=== PATIENT | male | born 1980 ===

== ENCOUNTER 2020-01-23 19:03 | Emergency (ER) ==
[2020-01-23] MEDS ORDERED: NA CHLORIDE 0.9% 1,000 ML ONE (19:35)
[2020-01-23] MEDS ORDERED: DOXYCYCLINE 100 MG CAP PO ONE (19:35)
[2020-01-23] MEDS ORDERED: TETANUS & DIPHTHERIA TOX,ADULT 0.5 ML VIAL ONE (19:35)
[2020-01-23] MEDS ORDERED: HYDROMORPHONE HCL 1 MG/ML INJ ONE ×2 (19:35→20:07)
[2020-01-23] MEDS ORDERED: ONDANSETRON 4 MG/2 ML VIAL ONE (19:35)
--- NOTE | 2020-01-23 19:57 | RAD REPORT ---
EXAM DESCRIPTION: Nellie Last Left01/23/2020 7:34 pm CLINICAL HISTORY: Left leg pain status post injury FINDINGS: No fracture is seen. Medial soft tissue swelling. No radiopaque foreign body
[2020-01-23] MEDS ORDERED: FENTANYL CITR 100 MCG/2 ML ONE ×2 (21:10→22:02)
--- NOTE | 2020-01-23 21:51 | ER ---
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 ll1 Coronavirus screen: Proceed with normal triage. Patient denies a cough. Patient denies shortness of breath or difficulty breathing. Patient denies measured and/or subjective temperature greater than 100.4F prior to today's visit. Patient denies travel on a cruise ship or to a country the [facility] currently lists as an affected area. Patient denies contact with known and/or suspected case of COVID-19. Ebola Screen: Patient denies travel to an Ebola-affected area in the 21 days before illness onset. 19:08 Method Of Arrival: Wheelchair ll1 19:17 Initial Sepsis Screen: Does the patient meet any 2 criteria? RR > 20 per min. HR > 90 ll1 bpm. Risk Assessment: Do you want to hurt yourself or someone else? Patient reports no desire to harm self or others. Onset of symptoms was January 23, 2020. 19:17 Acuity: AKI 2 ll1 22:18 Initial Sepsis Screen: Does the patient have a suspected source of infection? Yes: Skin ch2 breakdown/wound. Historical: - Allergies: 19:17 No Known Allergies; ll1 - PMHx: 19:17 Diabetes - NIDDM; ll1 - Immunization history:: Last tetanus immunization: up to date. - Social history:: Smoking status: Patient denies any tobacco usage or history of. Screenin:17 Abuse screen: Denies threats or abuse. Denies injuries from another. Nutritional ch2 screening: No deficits noted. Tuberculosis screening: No symptoms or risk factors identified. Fall Risk None identified. Assessment: 19:15 Reassessment: pt left foot placed into warm water soak. sg 19:47 General: Appears distressed, uncomfortable, obese, well groomed, well developed, well ch2 nourished, Behavior is cooperative, appropriate for age, anxious, restless, Reports. Pain: Complains of pain in left medial ankle Pain currently is 10 out of 10 on a pain scale. Quality of pain is described as. Neuro: No deficits noted. 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 Full function Gait is Speech is normal, Reports Denies blurred vision dizziness, difficulty swallowing. Cardiovascular: No deficits noted. Denies chest pain, nausea, shortness of breath, Capillary refill < 3 seconds. Respiratory: No deficits noted. Airway is patent Trachea Respiratory effort is even, unlabored, Respiratory pattern is regular, symmetrical. Derm: Skin sting ray sting to left inner ankle, minimal bleeding, slightly swollen. Injury Description: Puncture sustained to left medial ankle. 20:00 Reassessment: Patient and/or family updated on plan of care and expected duration. Pain ch2 level reassessed. Patient is alert, oriented x 3, equal unlabored respirations, skin warm/dry/pink. Patient states feeling better. Patient states symptoms have improved. 20:00 Pain: Pain currently is 5 out of 10 on a pain scale. Alleviated by medications, heat ch2 application, relaxation. 22:15 Reassessment: Patient appears in no apparent distress at this time. Patient and/or ch2 family updated on plan of care and expected duration. Pain level reassessed. Patient is alert, oriented x 3, equal unlabored respirations, skin warm/dry/pink. Patient states feeling better. Patient states symptoms have improved. Pain: Pain currently is 8 out of 10 on a pain scale. Vital Signs: 19:17 Pulse 114; Resp 26; Temp 97.6; Pulse Ox 100% ; Pain 10/10; ll1 19:46 BP 120 / 87; Pain 10/10; ch2 21:00 BP 111 / 69; Pulse 88; Resp 20; Pain 5/10; ch2 22:12 Pain 5/10; ch2 22:14 BP 124 / 90; Pulse 90; Resp 20; Pulse Ox 100% ; Pain 8/10; ch2 ED Course: 19:04 Patient arrived in ED. bp1 19:12 Gino Wilson NP is PHCP. pm1 19:12 Regine Cm MD is Attending Physician. pm1 19:17 Triage completed. ll1 19:34 XRAY Tib Fib LEFT In Process Unspecified. EDMS 19:40 Arm band placed on right wrist. Patient placed. ch2 19:40 Inserted saline lock: 20 gauge in right antecubital area, using aseptic technique. ch2 21:23 Patient has correct armband on for positive identification. Bed in low position. Call ch2 light in reach. Adult w/ patient. Door closed. Noise minimized. Visitors limited. 22:17 No provider procedures requiring assistance completed. IV discontinued, intact, ch2 bleeding controlled, No redness/swelling at site. Pressure dressing applied. 23:30 Attending Physician role handed off by Regine Cm MD sg Administered Medications: Discontinued: NS 0.9% 1000 ml IV at 125 ml/hr continuous 19:43 Drug: Zofran (Ondansetron) 4 mg Route: IVP; Site: right antecubital; ch2 21:21 Follow up: Response: No adverse reaction; Marked relief of symptoms; Anxiety decreased; ch2 Nausea is decreased 19:43 Drug: Dilaudid 1 mg Route: IVP; Site: right antecubital; ch2 21:20 Follow up: Response: No adverse reaction; Marked relief of symptoms; Pain is decreased; ch2 Anxiety decreased 19:43 Drug: Doxycycline 100 mg Route: PO; ch2 21:21 Follow up: Response: No adverse reaction ch2 19:44 Drug: Tetanus-Diphtheria Toxoid Adult 0.5 ml {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 Exp: ch2 09/17/2021. Lot #: [id number]. } Route: IM; Site: right deltoid; 21:22 Follow up: Response: No adverse reaction ch2 19:45 Drug: NS 0.9% 1000 ml Route: IV; Rate: 125 ml/hr; Site: right antecubital; ch2 20:00 Drug: Dilaudid 1 mg Route: IVP; Site: right antecubital; sg 21:20 Drug: fentaNYL (PF) 50 mcg Route: IVP; Site: right antecubital; ch2 22:12 Follow up: Pain 5/10 Adult; Response: No adverse reaction; Marked relief of symptoms; ch2 Pain is decreased 22:12 Drug: fentaNYL (PF) 50 mcg Route: IVP; Site: right antecubital; ch2 Outcome: 21:51 Discharge ordered by . pm1 22:16 Discharged to home via wheelchair, with family. ch2 22:16 Condition: improved 22:16 Discharge instructions given to patient, significant other, Instructed on discharge instructions, follow up and referral plans. medication usage, Demonstrated understanding of instructions, follow-up care, medications, wound care, Prescriptions given X 2. 22:37 Patient left the ED. ch2 Signatures: Dispatcher [employer] EDMS Joshua Caldwell RN RN sg Gino Wilson, AUDIO ENGINEER AUDIO ENGINEER pm1 Nguyen Diez RN RN ch2 Alejandro Valdivia RN RN ll1 [facility] Corrections: (The following items were deleted from the chart) 23:32 23:32 Patient left the ED. mirian vela
--- NOTE | 2020-01-23 21:52 | EDPHYS ---
Physician Documentation [facility] Name: Felix Nieves Age: 39 yrs Sex: Male : 1980 Arrival Date: 01/23/2020 Time: 19:04 Bed External Waiting Private MD: ED Physician HPI: 01/22 19:17 This 39 yrs old Male presents to ER via Wheelchair with complaints of Stingray sting. pm1 19:17 Onset: The symptoms/episode began/occurred just prior to arrival. Associated signs and pm1 symptoms: Pertinent positives: Left lower leg pain, Pertinent negatives: chest pain, shortness of breath, Nausea, vomiting. Modifying factors: The patient symptoms are alleviated by nothing, the patient symptoms are aggravated by nothing. The patient has not experienced similar symptoms in the past. It is unknown whether or not the patient has recently seen a physician. Patient was wading in the water and he got stung by a sting ray to his left lower leg. Historical: - Allergies: 19:17 No Known Allergies; ll1 - PMHx: 19:17 Diabetes - NIDDM; ll1 - Immunization history:: Last tetanus immunization: up to date. - Social history:: Smoking status: Patient denies any tobacco usage or history of. ROS: 19:17 Constitutional: Negative for fever, chills, and weight loss, Cardiovascular: Negative pm1 for chest pain, palpitations, and edema, Respiratory: Negative for shortness of breath, cough, wheezing, and pleuritic chest pain. 19:17 Abdomen/GI: Negative for abdominal pain, nausea, vomiting, diarrhea, and constipation, Neuro: Negative for headache, weakness, numbness, tingling, and seizure. 19:17 MS/extremity: Positive for pain, of the left leg, Negative for decreased range of motion, deformity. 19:17 Skin: Positive for puncture, of the left medial ankle. 19:17 All other systems are negative. Exam: 19:17 Constitutional: This is a well developed, well nourished patient who is awake, alert, pm1 and in no acute distress. Head/Face: Normocephalic, atraumatic. Neck: Trachea midline, no thyromegaly or masses palpated, and no cervical lymphadenopathy. Supple, full range of motion without nuchal rigidity, or vertebral point tenderness. No Meningismus. 19:17 Cardiovascular: Exam negative for acute changes, Rate: tachycardic, Rhythm: regular, Pulses: no pulse deficits are appreciated, Edema: is not appreciated. 19:17 Respiratory: Exam negative for acute changes, respiratory distress, shortness of breath, wheezing. 19:17 Musculoskeletal/extremity: Extremities: grossly normal except: noted in the left medial ankle: puncture, 0.5 cm in length, ROM: intact in all extremities, Circulation is intact in all extremities. the left leg Sensation intact. 19:17 Skin: Appearance: normal except for affected area, injury, puncture(s), of the left medial ankle. 19:17 Neuro: Exam negative for acute changes, Orientation: is normal, Mentation: is normal, Motor: is normal, moves all fours, Sensation: is normal, no obvious gross deficits. Vital Signs: 19:17 Pulse 114; Resp 26; Temp 97.6; Pulse Ox 100% ; Pain 10/10; ll1 19:46 BP 120 / 87; Pain 10/10; ch2 21:00 BP 111 / 69; Pulse 88; Resp 20; Pain 5/10; ch2 22:12 Pain 5/10; ch2 22:14 BP 124 / 90; Pulse 90; Resp 20; Pulse Ox 100% ; Pain 8/10; ch2 MDM: 19:12 Patient medically screened. pm1 20:51 Data reviewed: vital signs. Data interpreted: Pulse oximetry: on room air is 100 %. pm1 Interpretation: normal. Counseling: I had a detailed discussion with the patient and/or guardian regarding: the historical points, exam findings, and any diagnostic results supporting the discharge/admit diagnosis, radiology results, the need for outpatient follow up, to return to the emergency department if symptoms worsen or persist or if there are any questions or concerns that arise at home. 21:51 Special discussion: I discussed in detail with the patient the higher chance of wound pm1 infection based on his presenting history. Cleansed wound with Betadine and saline. [place] would not allow me to probe wound with sterile q-tip and cleanse inside puncture wound. 01/22 19:16 Order name: XRAY Tib Fib LEFT; Complete Time: 20:23 snw 01/22 19:17 Order name: NPO snw 01/22 19:17 Order name: Misc. Order: Hot water soak; Complete Time: 20:03 snw Administered Medications: Discontinued: NS 0.9% 1000 ml IV at 125 ml/hr continuous 19:43 Drug: Zofran (Ondansetron) 4 mg Route: IVP; Site: right antecubital; ch2 21:21 Follow up: Response: No adverse reaction; Marked relief of symptoms; Anxiety decreased; ch2 Nausea is decreased 19:43 Drug: Dilaudid 1 mg Route: IVP; Site: right antecubital; ch2 21:20 Follow up: Response: No adverse reaction; Marked relief of symptoms; Pain is decreased; ch2 Anxiety decreased 19:43 Drug: Doxycycline 100 mg Route: PO; ch2 21:21 Follow up: Response: No adverse reaction ch2 19:44 Drug: Tetanus-Diphtheria Toxoid Adult 0.5 ml {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 Exp: [facility] 09/17/2021. Lot #: [id number]. } Route: IM; Site: right deltoid; 21:22 Follow up: Response: No adverse reaction ch2 19:45 Drug: NS 0.9% 1000 ml Route: IV; Rate: 125 ml/hr; Site: right antecubital; ch2 20:00 Drug: Dilaudid 1 mg Route: IVP; Site: right antecubital; sg 21:20 Drug: fentaNYL (PF) 50 mcg Route: IVP; Site: right antecubital; ch2 22:12 Follow up: Pain 5/10 Adult; Response: No adverse reaction; Marked relief of symptoms; ch2 Pain is decreased 22:12 Drug: fentaNYL (PF) 50 mcg Route: IVP; Site: right antecubital; ch2 Disposition: 01/23 07:03 Co-signature as Attending Physician, Gino carty 07:04 Co-signature as Attending Physician, Regine Cm MD., ma2 Disposition: 01/23/20 21:51 Discharged to Home. Impression: Puncture wound without foreign body, left ankle. - Condition is Stable. - Discharge Instructions: Puncture Wound. - Prescriptions for Tylenol- Codeine #3 300-30 mg Oral Tablet - take 2 tablets by ORAL route every 6 hours As needed; 20 tablet. Doxycycline Hyclate 100 mg Oral Tablet - take 1 tablet by ORAL route every 12 hours; 20 tablet. - Medication Reconciliation Form, Thank You Letter, Antibiotic Education, Prescription Opioid Use, Work release form form. - Follow up: Emergency Department; When: As needed; Reason: Worsening of condition. Follow up: Private Physician; When: 2 - 3 days; Reason: Recheck today's complaints, Continuance of care, Re-evaluation by your physician. - Problem is new. - Symptoms have improved. Signatures: Dispatcher [employer] EDMS Joshua Caldwell RN RN sg Rosa Isela Andrea, TOBACCO CLASSER-C TOBACCO CLASSER-Csnw Gino Wilson, PLAYERS ASSISTANT PLAYERS ASSISTANT pm1 Regine Cm MD MD ma2 Nguyen Diez RN RN ch2 Alejandro Valdivia RN RN ll1 Corrections: (The following items were deleted from the chart) 01/22 22:37 21:51 01/23/2020 21:51 Discharged to Home. Impression: Puncture wound without foreign ch2 body, left ankle. Condition is Stable. Forms are Medication Reconciliation Form, Thank You Letter, Antibiotic Education, Prescription Opioid Use. Follow up: Emergency Department; When: As needed; Reason: Worsening of condition. Follow up: Private Physician; When: 2 - 3 days; Reason: Recheck today's complaints, Continuance of care, Re-evaluation by your physician. Problem is new. Symptoms have improved. pm1 23:32 22:37 01/23/2020 21:51 Discharged to Home. Impression: Puncture wound without foreign sg body, left ankle. Condition is Stable. Discharge Instructions: Puncture Wound. Prescriptions for Tylenol-Codeine #3 300-30 mg Oral Tablet - take 2 tablets by ORAL route every 6 hours As needed; 20 tablet, Doxycycline Hyclate 100 mg Oral Tablet - take 1 tablet by ORAL route every 12 hours; 20 tablet. and Forms are Medication Reconciliation Form, Thank You Letter, Antibiotic Education, Prescription Opioid Use, Work release form. Follow up: Emergency Department; When: As needed; Reason: Worsening of condition. Follow up: Private Physician; When: 2 - 3 days; Reason: Recheck today's complaints, Continuance of care, Re-evaluation by your physician. Problem is new. Symptoms have improved. ch2
== END 2020-01-23 23:32 | disposition home or self-care (01) ==
LOC: ER 19:03
DX: S91.032A Puncture wound without foreign body, left ankle, initial encounter (principal); W56.31XA Bitten by other marine mammals, initial encounter; Y93.89 Activity, other specified; Y92.832 Beach as the place of occurrence of the external cause; Z23 Encounter for immunization
CPT/HCPCS: 90471; 90714; 96374; 96375; 99284; J1170; J2405; J3010; J7030